=== PATIENT | female | born 1985 | race Caucasian/White ===

== ENCOUNTER 2019-07-28 17:05 | Emergency (ER) | payer SELFPAY ==
[~2019-07-28] VITALS: Ht 165.1 cm; Wt 90.7 kg
--- NOTE | 2019-07-28 17:05 | NUR ---
PT INSTRUCTED TO WAIT IN COVID TENT
[2019-07-28 17:08] VITALS: BP 141/111
[2019-07-28 17:12] VITALS: BP 141/111
--- NOTE | 2019-07-28 17:15 | NUR ---
34 Y/O FEMALE PRESENTS WITH COUGH X2 DAYS + SOB TODAY. RESP EVEN AND UNLABORED. LUNG SOUNDS CLEAR IN BILAT LOBES. NO RESP DISTRESS NOTED AT THIS TIME. PT IS AFBERILE AT THIS TIME. PT REPORTS TO [facility] USE THIS MORNING AND HAS BEEN USING FOR A YEAR AND A HALF. SKIN COOL/DRY. AAOX4. PMH: ASTHMA NKA
--- NOTE | 2019-07-28 17:22 | NUR ---
SECURITY NOTIFED STAFF THAT PATIENT ELOPED
--- NOTE | 2019-07-28 17:23 | NUR ---
PATIENT LEFT WITHOUT BEING SEEN BY DR. PERRIN. NO FURTHER CARE PROVIDED FOR PATIENT.
== END 2019-07-28 17:20 | disposition left against medical advice (07) ==
LOC: MED 17:05
DX: R05 Cough (principal); R06.02 Shortness of breath; Z53.21 Procedure and treatment not carried out due to patient leaving prior to being seen by health care provider